=== PATIENT | male | born 1990 | race Caucasian/White ===

== ENCOUNTER 2019-10-22 19:00 | Emergency (ER) | payer OTHER, SELFPAY ==
[~2019-10-22] VITALS: Ht 175.3 cm; Wt 88.5 kg
[2019-10-22 20:04] VITALS: BP 131/84
[2019-10-22 21:39] LABS: Albumin 4.8 g/dL (3.4-5.0); Calcium 9.9 mg/dL (8.5-10.1); Potassium 3.8 mmol/L (3.5-5.1)
[2019-10-22 21:44] LABS: BUN/Creatinine Ratio 17.7; Bilirubin, Total 1.3 mg/dL (0.2-1.0); Total Protein 8.8 g/dL (6.4-8.2)
== END 2019-10-22 22:06 | disposition home or self-care (01) ==
LOC: ER 19:00
DX: J01.00 Acute maxillary sinusitis, unspecified (principal); R05 Cough; R50.9 Fever, unspecified; Z20.828 Contact with and (suspected) exposure to other viral communicable diseases
CPT/HCPCS: 36415; 71045; 80053; 82728; 87635